=== PATIENT | female | born 2000 | race Caucasian/White ===

== ENCOUNTER 2018-05-14 12:21 | Inpatient (IN) | payer OTHER ==
[2018-05-14] MEDS ORDERED: ACETAMINOPHEN TAB 500 MG TAB PO STA (12:36)
[2018-05-14] MEDS ORDERED: SODIUM CHLORIDE 0.9% 2,000 ML IV STA (12:36)
[2018-05-14] MEDS ORDERED: ONDANSETRON 4 MG/2 ML VIAL IVP STA (12:36)
--- NOTE | 2018-05-14 12:40 | ED ---
General Adult HPI - General Chief complaint: Nausea/Vomiting/Diarrhea Stated complaint: Vomiting Time Seen by Provider: 05/14/18 12:30 Source: patient, RN notes reviewed, old records reviewed Mode of arrival: ambulatory Limitations: no limitations - History of Present Illness Initial comments: 17-year-old female presenting with 1 day history of nausea vomiting. Patient's states she's had 2 episodes of vomiting each hour for the past 17 hours. Denies diarrhea. She is uncertain of her last bowel movement was. She does report increased urinary frequency and has history of previous UTI and pyelonephritis. She does report some sick contacts with vomiting. She reports 4 days of vaginal discharge, no concern for STDs. Last menstrual period was 5 days ago. - Related Data Home Medications Medication Instructions Recorded Confirmed No Known Home Medications 05/14/18 05/14/18 Allergies Allergy/AdvReac Type Severity Reaction Status Date / Time escitalopram [From Lexapro] Allergy Unknown Verified 05/14/18 12:52 depression meds Allergy Unknown Uncoded 05/14/18 12:48 Review of Systems ROS Statement: Those systems with pertinent positive or pertinent negative responses have been documented in the HPI. ROS Other: All systems not noted in ROS Statement are negative. Past Medical History Additional Past Medical History / Comment(s): Frequent UTI History of Any Multi-Drug Resistant Organisms: None Reported Past Surgical History: No Surgical Hx Reported Past Psychological History: Anxiety, Bipolar, Depression Smoking Status: Former smoker Past Alcohol Use History: None Reported Past Drug Use History: None Reported General Exam Limitations: no limitations General appearance: alert, in no apparent distress Head exam: Present: atraumatic, normocephalic Eye exam: Present: normal appearance, PERRL ENT exam: Present: mucous membranes dry Neck exam: Present: normal inspection. Absent: tenderness, meningismus Respiratory exam: Present: normal lung sounds bilaterally. Absent: respiratory distress, wheezes Cardiovascular Exam: Present: normal rhythm, tachycardia GI/Abdominal exam: Present: soft, tenderness (Generalized tenderness to palpation, worse suprapubic). Absent: distended Extremities exam: Present: normal inspection, normal capillary refill. Absent: pedal edema Neurological exam: Present: alert, oriented X3 Psychiatric exam: Present: normal affect, normal mood Skin exam: Present: warm, dry, intact. Absent: cyanosis, diaphoretic Course Vital Signs 05/14/18 05/14/1805/14/19 12:22 13:04 14:30 Temperature 98.8 F Pulse Rate 149 H 114 H 98 Respiratory 17 18 18 Rate Blood Pressure 118/76 114/78 95/55 O2 Sat by Pulse 97 99 97 Oximetry 05/14/18 05/14/18 15:34 16:24 Temperature Pulse Rate 99 102 H Respiratory 18 18 Rate Blood Pressure 101/51 111/62 O2 Sat by Pulse 96 99 Oximetry Procedures - Sepsis Sepsis Focused Exam #1 Sepsis Focused Exam Date: 05/14/18 Sepsis Focused Exam Time: 16:38 Sepsis Focused Exam Complete: Yes Vital Signs & RN Notes Reviewed: Yes Peripheral Pulses: Normal: Radial (R), Radial (L) Skin Color: Normal for Patient Respiratory Exam: normal lung sounds Cardiovascular Exam: regular rate, normal rhythm Medical Decision Making - Medical Decision Making 17-year-old female presenting with nausea vomiting, no abdominal pain. Patient is toxic appearing on initial evaluation, tachycardic. Patient has elevated white blood cell count, stable hemoglobin, lactic is significantly elevated at 5.1. Urinalysis shows 12 white cells, 14 squamous cells, not consistent with ongoing UTI. Ultrasound is obtained, negative for tubo-ovarian abscess, no acute findings. CT obtained to rule out acute intra-abdominal pathology including appendicitis, this is negative. Pelvic exam reveals copious cervical discharge which is foul-smelling. Cultures obtained. Patient started on antibiotics covering pelvic inflammatory disease. Case discussed with [employer]ER on- call Dr. Bellamy, will admit patient for IV antibiotics. Diagnosis: Pelvic inflammatory disease, sepsis - Lab Data Result diagrams: 05/14/18 12:55 05/14/18 12:55 Lab Results 05/14/18 05/14/18 05/14/18 Range/Units 12:55 12:55 12:55 WBC 12.8 H (4.0-11.0) k/uL RBC 5.21 (3.80-5.40) m/uL Hgb 15.3 (11.4-16.0) gm/dL Hct 45.9 (34.0-46.0) % MCV 88.1 (80.0-100.0) fL MCH 29.4 (25.0-35.0) pg MCHC 33.4 (31.0-37.0) g/dL RDW 12.7 (11.5-15.5) % Plt Count 192 (150-450) k/uL Neutrophils % 90 % Lymphocytes % 4 % Monocytes % 5 % Eosinophils % 0 % Basophils % 0 % Neutrophils # 11.5 H (1.3-7.7) k/uL Lymphocytes # 0.5 L (1.0-4.8) k/uL Monocytes # 0.7 (0-1.0) k/uL Eosinophils # 0.0 (0-0.7) k/uL Basophils # 0.0 (0-0.2) k/uL Sodium 139 (137-145) mmol/L Potassium 4.5 (3.5-5.1) mmol/L Chloride 100 (98-107) mmol/L Carbon Dioxide 22 (22-30) mmol/L Anion Gap 17 mmol/L BUN 27 H (7-17) mg/dL Creatinine 0.88 (0.52-1.04) mg/dL Est GFR (CKD-EPI)AfAm >90 (>60 ml/min/1.73 sqM) Est GFR (CKD-EPI)NonAf >90 (>60 ml/min/1.73 sqM) Glucose 132 H (74-99) mg/dL Plasma Lactic Acid Ke 5.1 H* (0.7-2.0) mmol/L Calcium 10.2 (8.4-10.2) mg/dL Total Bilirubin 1.2 (0.2-1.3) mg/dL AST 25 (14-36) U/L ALT 27 (9-52) U/L Alkaline Phosphatase 64 (38-126) U/L Total Protein 8.2 (6.3-8.2) g/dL Albumin 4.9 (3.5-5.0) g/dL Lipase 25 (23-300) U/L Urine Color Urine Appearance (Clear) Urine pH (5.0-8.0) Ur Specific [place] (1.001-1.035) Urine Protein (Negative) Urine Glucose (UA) (Negative) Urine Ketones (Negative) Urine Blood (Negative) Urine Nitrite (Negative) Urine Bilirubin (Negative) Urine Urobilinogen (<2.0) mg/dL Ur Leukocyte Esterase (Negative) Urine RBC (0-5) /hpf Urine WBC (0-5) /hpf Ur Squamous Epith Cells (0-4) /hpf Urine Mucus (None) /hpf Urine HCG, Qual (Not Detectd) 05/14/18 05/14/18 Range/Units 12:55 12:55 WBC (4.0-11.0) k/uL RBC (3.80-5.40) m/uL Hgb (11.4-16.0) gm/dL Hct (34.0-46.0) % MCV (80.0-100.0) fL MCH (25.0-35.0) pg MCHC (31.0-37.0) g/dL RDW (11.5-15.5) % Plt Count (150-450) k/uL Neutrophils % % Lymphocytes % % Monocytes % % Eosinophils % % Basophils % % Neutrophils # (1.3-7.7) k/uL Lymphocytes # (1.0-4.8) k/uL Monocytes # (0-1.0) k/uL Eosinophils # (0-0.7) k/uL Basophils # (0-0.2) k/uL Sodium (137-145) mmol/L Potassium (3.5-5.1) mmol/L Chloride (98-107) mmol/L Carbon Dioxide (22-30) mmol/L Anion Gap mmol/L BUN (7-17) mg/dL Creatinine (0.52-1.04) mg/dL Est GFR (CKD-EPI)AfAm (>60 ml/min/1.73 sqM) Est GFR (CKD-EPI)NonAf (>60 ml/min/1.73 sqM) Glucose (74-99) mg/dL Plasma Lactic Acid Ke (0.7-2.0) mmol/L Calcium (8.4-10.2) mg/dL Total Bilirubin (0.2-1.3) mg/dL AST (14-36) U/L ALT (9-52) U/L Alkaline Phosphatase (38-126) U/L Total Protein (6.3-8.2) g/dL Albumin (3.5-5.0) g/dL Lipase (23-300) U/L Urine Color Yellow Urine Appearance Cloudy H (Clear) Urine pH 5.5 (5.0-8.0) Ur Specific [place] 1.035 (1.001-1.035) Urine Protein 1+ H (Negative) Urine Glucose (UA) Negative (Negative) Urine Ketones Trace H (Negative) Urine Blood Small H (Negative) Urine Nitrite Negative (Negative) Urine Bilirubin Negative (Negative) Urine Urobilinogen <2.0 (<2.0) mg/dL Ur Leukocyte Esterase Trace H (Negative) Urine RBC 6 H (0-5) /hpf Urine WBC 12 H (0-5) /hpf Ur Squamous Epith Cells 45 H (0-4) /hpf Urine Mucus Many H (None) /hpf Urine HCG, Qual Not Detected (Not Detectd) Disposition Clinical Impression: Pelvic inflammatory disease, Sepsis Disposition: ADMITTED IP TO THIS HOSP Condition: Stable Is patient prescribed a controlled substance at d/c from ED?: No Referrals: None,Stated [Primary Care Provider] - 1-2 days Decision to Admit Reason: Admit from EC Decision Date: 05/14/18 Decision Time: 16:39
[2018-05-14 13:31] LABS: Basophils % (A) 0 %; Eosinophils % (A) 0 %; HCT 45.9 % (34.0-46.0); HGB 15.3 gm/dL (11.4-16.0); Lymphocytes # (A) 0.5 k/uL (1.0-4.8); Lymphocytes % (A) 4 %; MCH 29.4 pg (25.0-35.0); MCHC 33.4 g/dL (31.0-37.0); MCV 88.1 fL (80.0-100.0); Mean Platelet Volume 9.8; Monocytes # (A) 0.7 k/uL (0-1.0); Monocytes % (A) 5 %; Neutrophils # (A) 11.5 k/uL (1.3-7.7); Neutrophils % (A) 90 %; Platelet Count 192 k/uL (150-450); RBC 5.21 m/uL (3.80-5.40); RDW 12.7 % (11.5-15.5); WBC 12.8 k/uL (4.0-11.0)
[2018-05-14 13:40] LABS: ALT 27 U/L (9-52); AST 25 U/L (14-36); Albumin 4.9 g/dL (3.5-5.0); Alkaline Phosphatase 64 U/L (38-126); Anion Gap 17 mmol/L; Blood Urea Nitrogen 27 mg/dL (7-17); Calcium 10.2 mg/dL (8.4-10.2); Carbon Dioxide 22 mmol/L (22-30); Chloride 100 mmol/L (98-107); Glucose 132 mg/dL (74-99); Lipase 25 U/L (23-300); Potassium 4.5 mmol/L (3.5-5.1); Sodium 139 mmol/L (137-145); Total Bilirubin 1.2 mg/dL (0.2-1.3); Total Protein 8.2 g/dL (6.3-8.2)
[2018-05-14 13:43] LABS: Appearance,Urine Cloudy (Clear); Bilirubin,Urine Negative (Negative); Blood,Urine Small (Negative); Color,Urine Yellow; Glucose,Urine (UA) Negative (Negative); Ketones,Urine Trace (Negative); Leukocyte Esterase,Urine Trace (Negative); Mucus,Urine Many /hpf; Nitrite,Urine Negative (Negative); PH, Urine 5.5 (5.0-8.0); Protein,Urine 1+ (Negative); RBC,Urine 6 /hpf (0-5); Specific Gravity,Urine 1.035 (1.001-1.035); Squamous Epithelial Cell,Urine 45 /hpf (0-4); Urobilinogen,Urine <2.0 mg/dL (<2.0); WBC,Urine 12 /hpf (0-5)
[2018-05-14] MEDS ORDERED: SODIUM CHLORIDE 0.9% 1,000 ML IV ONE (13:57)
[2018-05-14] MEDS ORDERED: metroNIDAZOLE-NS PMX 500 MG in SALINE 1 100ML.BAG IVPB STA (13:57)
[2018-05-14] MEDS ORDERED: KETOROLAC 30 MG/ML 1 ML VIAL IVP STA (13:58)
--- NOTE | 2018-05-14 15:39 | US ---
EXAMINATION TYPE: US transvaginal DATE OF EXAM: 05/14/2018 COMPARISON: NONE CLINICAL HISTORY: pain. Abdomen pain and N/V x 1 day, irregular cycles, patient has IUD TECHNIQUE: Transvaginal ER exam. Date of LMP: Last cycle ended 5 days ago EXAM MEASUREMENTS: Uterus: 6.6 x 2.6 x 4.7 cm Endometrial Stripe: 0.4 cm Right Ovary: 2.0 x 1.8 x 1.5 cm Left Ovary: 2.3 x 1.7 x 1.8 cm 1. Uterus: anteverted 2. Endometrium: IUD appears in place 3. Right Ovary: wnl 4. Left Ovary: 1.6 x 1.0 x 1.5cm septated cyst Spectral, color and waveform doppler imaging shows arterial flow within bilateral ovaries, unable t o obtain venous flow within bilateral ovaries. Color flow noted to both ovaries. 5. Bilateral Adnexa: wnl 6. Posterior cul-de-sac: wnl IMPRESSION: Intrauterine contraceptive device. Septated cystic focus associated with the left ovary.
--- NOTE | 2018-05-14 16:00 | CT ---
EXAMINATION TYPE: CT abdomen pelvis w con DATE OF EXAM: 05/14/2018 COMPARISON: None INDICATION: ABDOMINAL PAIN AND VOMITING DLP: 511.9 mGycm, Automated exposure control for dose reduction was used. CONTRAST: 100 mL of Isovue 300. Study performed without Oral Contrast TECHNIQUE: Axial images were obtained from above the diaphragm to the pubic rami in the axial plane a t 5 mm thick sections. Reconstructed images are reviewed on the computer in the coronal plane. FINDINGS: Limited CT sections are obtained the lung bases. The lung bases are clear. CT ABDOMEN: Liver: Normal Spleen: Normal Pancreas: Normal Adrenal glands: The adrenal glands are normal. Gallbladder: Normal Kidneys: No masses are evident. No hydronephrosis is present. No cysts are present. Delayed images were obtained through the kidneys, which remain unremarkable. Aorta: Normal Inferior vena cava: Normal. CT PELVIS: Loops of bowel within the abdomen and pelvis are normal. Studies without oral contrast limiting b owel evaluation. Appendix: Not identified. No suspicious tubular structures or inflammatory changes are evident. Urinary bladder: Normal. Genitourinary structures: Uterus contains an IUD. Adnexal regions are unremarkable. Osseous structures: No suspicious lytic or sclerotic lesions. IMPRESSIONS: 1. Normal CT abdomen and pelvis.
[2018-05-14] MEDS ORDERED: AZITHROMYCIN 500 MG TAB PO STA (16:24)
[2018-05-14] MEDS ORDERED: NALOXONE 0.4 MG/ML 1 ML VIAL IV PRN (16:31)
[2018-05-14] MEDS: SODIUM CHLORIDE 0.9% 1,000 ML IV SCH (17:19)
[2018-05-14 18:32] VITALS: BMI 22.8
--- NOTE | 2018-05-14 19:49 | P.HPOB ---
History of Present Illness H&P Date: 05/14/18 Chief Complaint: PID Patient is a 17-year-old female who over the last 24 hours has had multiple episodes of nausea and vomiting. She was seen in the emergency room for acute nausea and vomiting and pelvic/abdominal pain. Abdomen soft with minimal tenderness there is no rebound or rigidity. Pelvic exam was done by myself as we are trying to see if we could remove her IUD due to potential worsening of infection if she has PID. Cultures are pending. On exam cervix is nulliparous and small was no significant cervical motion tenderness on exam and she tolerated trying to explore the cervical canal for the IUD strings very well. I was unable to identify the strings with a long Mishel and therefore IUD could not be removed. It may unfortunately. She needs to have it done under anesthesia or we could certainly try in the office at a later date. She reports that the IUD is passed its point of removal and was posterior removed couple of months ago in [place] but they were unable to find the strings and did not even attempt to remove it. Ultrasound shows IUD in correct position. She had it inserted actively 3 years ago and it is a ashleigh IUD. At this time other than IV antibiotics and antiemetics/analgesics there is limited else to do. Cultures are all pending. Trichomonas culture was negative. At this time I'm not Certain That She Has PID but Cultures Will Verify If There Is an Infectious Source. Vital signs are stable and afebrile. Heart regular, lungs clear, extremities without pain. Past medical history none Past surgical history none ALLERGIES none social history is significant for marijuana use and remote history of tobacco use family history is noncontributory Assessment PID Plan IV antibiotics for minimum of [address] Newby in the a.m. as she may have to have this removed under anesthesia but at this time I don't believe that there is an emergency in doing so. Past Medical History Additional Past Medical History / Comment(s): Frequent UTI History of Any Multi-Drug Resistant Organisms: None Reported Past Surgical History: No Surgical Hx Reported Past Anesthesia/Blood Transfusion Reactions: No Reported Reaction Past Psychological History: Anxiety, Bipolar, Depression Smoking Status: Former smoker Past Alcohol Use History: None Reported Past Drug Use History: Marijuana - Past Family History Father History Unknown: Yes Family Medical History: No Reported History Medications and Allergies Home Medications Medication Instructions Recorded Confirmed Type No Known Home Medications 05/14/18 05/14/18 History Allergies Allergy/AdvReac Type Severity Reaction Status Date / Time escitalopram [From Lexapro] Allergy Unknown Verified 05/14/18 18:33 depression meds Allergy Unknown Uncoded 05/14/18 18:33 Exam Osteopathic Statement: *. No significant issues noted on an osteopathic structural exam other than those noted in the History and Physical/Consult. Vital Signs Temp Pulse Pulse Resp BP BP Pulse Ox 05/14/18 18:19 98.6 F 96 16 106/59 99 05/14/18 17:20 97.8 F 91 18 106/88 100 05/14/18 16:24 102 H 18 111/62 99 05/14/18 15:34 99 18 101/51 96 05/14/18 14:30 98 18 95/55 97 05/14/18 13:04 114 H 18 114/78 99 05/14/18 12:22 98.8 F 149 H 17 118/76 97 Intake and Output 05/14/18 05/14/18 05/14/18 06:59 14:59 22:59 Other: Weight 54.431 kg Results Result Diagrams: 05/14/18 12:55 05/14/18 12:55 Abnormal Lab Results - Last 24 Hours (Table) 05/14/18 05/14/18 05/14/18 Range/Units 12:55 12:55 12:55 WBC 12.8 H (4.0-11.0) k/uL Neutrophils # 11.5 H (1.3-7.7) k/uL Lymphocytes # 0.5 L (1.0-4.8) k/uL BUN 27 H (7-17) mg/dL Glucose 132 H (74-99) mg/dL Plasma Lactic Acid Ke 5.1 H* (0.7-2.0) mmol/L Urine Appearance (Clear) Urine Protein (Negative) Urine Ketones (Negative) Urine Blood (Negative) Ur Leukocyte Esterase (Negative) Urine RBC (0-5) /hpf Urine WBC (0-5) /hpf Ur Squamous Epith Cells (0-4) /hpf Urine Mucus (None) /hpf 05/14/18 Range/Units 12:55 WBC (4.0-11.0) k/uL Neutrophils # (1.3-7.7) k/uL Lymphocytes # (1.0-4.8) k/uL BUN (7-17) mg/dL Glucose (74-99) mg/dL Plasma Lactic Acid Ke (0.7-2.0) mmol/L Urine Appearance Cloudy H (Clear) Urine Protein 1+ H (Negative) Urine Ketones Trace H (Negative) Urine Blood Small H (Negative) Ur Leukocyte Esterase Trace H (Negative) Urine RBC 6 H (0-5) /hpf Urine WBC 12 H (0-5) /hpf Ur Squamous Epith Cells 45 H (0-4) /hpf Urine Mucus Many H (None) /hpf
[2018-05-14] MEDS: DOXYCYCLINE 100 MG in SODIUM CHLORIDE 0.9% 100 ML IVPB SCH (20:23)
[2018-05-14] MEDS: ONDANSETRON 4 MG/2 ML VIAL IVP PRN (20:23)
[2018-05-14] MEDS: ACETAMINOPHEN TAB 325 MG TAB PO PRN (20:30)
[2018-05-14] MEDS: metroNIDAZOLE-NS PMX 500 MG in SALINE 1 100ML.BAG IVPB SCH (23:13)
[2018-05-15] MEDS: SODIUM CHLORIDE 0.9% 1,000 ML IV SCH ×2 (06:03→17:48)
[2018-05-15] MEDS: ONDANSETRON 4 MG/2 ML VIAL IVP PRN (06:08)
--- NOTE | 2018-05-15 08:13 | P.PN ---
Progress Note - Text Progress Note Date: 05/15/18 Overall patient is doing well. She is ambulating and voiding. She is tolerating a liquid diet but still struggles with a solid diet. There is some question as to whether not she truly has PID, will await final cultures to verify. Continue IV antibiotics until such time or switch to oral antibiotics when ready for discharge. We'll discuss with Dr. Vance this morning. Vital signs are stable and she is afebrile. CBC is pending for this morning. Is also noted from last night exam that she had scant milky discharge there was no posterior is no cervical drainage and no cervical motion tenderness. Her abdomen is otherwise also soft there is minimal tenderness to palpation. Nausea has essentially resolved at this time however. Assessment PID versus gastroenteritis Plan continue IV antibiotics for now and then switch to oral antibiotics at discharge if cultures are positive for pending. She'll follow up with me in the next 1-2 weeks for reevaluation and to see if we need to do something different to try and remove her IUD.
[2018-05-15] MEDS: metroNIDAZOLE-NS PMX 500 MG in SALINE 1 100ML.BAG IVPB SCH ×2 (08:23→15:58)
[2018-05-15] MEDS: DOXYCYCLINE 100 MG in SODIUM CHLORIDE 0.9% 100 ML IVPB SCH ×2 (09:36→22:13)
[2018-05-15 09:57] LABS: Basophils % (A) 0 %; Eosinophils # (A) 0.1 k/uL (0-0.7); Eosinophils % (A) 2 %; HCT 32.7 % (34.0-46.0); Lymphocytes % (A) 19 %; MCH 29.4 pg (25.0-35.0); MCHC 32.7 g/dL (31.0-37.0); MCV 89.9 fL (80.0-100.0); Mean Platelet Volume 9.6; Monocytes # (A) 0.5 k/uL (0-1.0); Monocytes % (A) 8 %; Neutrophils # (A) 3.6 k/uL (1.3-7.7); Neutrophils % (A) 67 %; Platelet Count 106 k/uL (150-450); RBC 3.64 m/uL (3.80-5.40); RDW 12.9 % (11.5-15.5); WBC 5.4 k/uL (4.0-11.0)
[2018-05-15 10:05] LABS: HGB 10.7 gm/dL (11.4-16.0)
[2018-05-15] MEDS: ACETAMINOPHEN TAB 325 MG TAB PO PRN ×2 (11:42→17:55)
[2018-05-15 12:25] LABS: C. trachomatis,PCR Negative (Neg,Equiv); Chlamydia trachomatis Source Vagina
[2018-05-15 12:26] LABS: N. gonorrhoeae,PCR Negative (Neg,Equiv); Neisseria Source Vagina
[2018-05-16] MEDS: metroNIDAZOLE-NS PMX 500 MG in SALINE 1 100ML.BAG IVPB SCH ×2 (01:30→08:07)
[2018-05-16] MEDS: ONDANSETRON 4 MG/2 ML VIAL IVP PRN (02:11)
--- NOTE | 2018-05-16 07:01 | P.PN ---
Progress Note - Text Progress Note Date: 05/16/18 Hospital day #2. This patient is resting without complaints. Vital signs are stable and she is afebrile. Patient is tolerating regular diet. Examination of her abdomen shows be soft nontender without rebound or guarding. Patient's received 24 hours plus of IV antibiotics. In discussion with the patient, I agree with Dr. Bellamy that this appears to be more gastrointestinal in etiology rather than PID however certainly giving her 24-hour course of IV antibiotics is reasonable. At this point she is no evidence of fever or elevated white count and therefore is felt to be stable for discharge home on oral antibiotics. Discharge home this morning and follow Dr. Bellamy in approximately 1 week. I'm going to discharge her on oral doxycycline but hold off on Flagyl due to the previous nausea and vomiting.
--- NOTE | 2018-05-16 07:04 | P.DS ---
Providers Date of admission: 05/14/18 16:33 Expected date of discharge: 05/16/18 Attending physician: Dontrell Bellamy Primary care physician: Stated None Hospital Course: Please see dictated H&P per Dr. Bellamy on this patient's admission. Brief summary this is a 17-year-old female who is admitted with 24 hours of profuse nausea and vomiting. Evaluation the emergency department was concerning for PID because they felt she had some cervical motion tenderness and the retained IUD. Dr. Bellamy did attempt to remove this however this was unsuccessful. His feeling was that this was not PID but rather gastroenteritis or some type of transient gastrointestinal infection. Patient however was given 24 hours of IV antibiotics is feeling much better. Patient is tolerating regular diet and afebrile. White blood cell count was normal. Patient's felt be stable to go home on the 7 day course of doxycycline I am going to hold off however on Flagyl. Patient will follow with Dr. Bellamy in 7 days for reevaluation and they'll discuss IUD removal at that time. Patient Condition at Discharge: Good Plan - Discharge Summary Discharge Rx Participant: Yes New Discharge Prescriptions: New Doxycycline Hyclate 100 mg PO Q12H #14 tab Discharge Medication List Doxycycline Hyclate 100 mg PO Q12H #14 tab 05/16/18 [Rx] Follow up Appointment(s)/Referral(s): Dontrell Bellamy DO [Doctor of Osteopathic Medicine] - 1 Week None,Stated [Primary Care Provider] - 1-2 days Patient Instructions/Handouts: Gastroenteritis (DC), Pelvic Inflammatory Disease (DC) Activity/Diet/Wound Care/Special Instructions: Return with any high temperatures, severe pain or resumption of symptoms. Discharge Disposition: HOME SELF-CARE
[2018-05-16 09:49] VITALS: BP 104/55; PULSE 77; RESP 16; TEMP 98
== END 2018-05-16 10:03 | disposition home or self-care (01) | DRG 392 ==
LOC: EC 12:21 → 6PED 16:33
PROVIDERS: ADMIT Obstetrics & Gynecology; ATTEND Obstetrics & Gynecology
DX: A09 Infectious gastroenteritis and colitis, unspecified (principal); Z87.440 Personal history of urinary (tract) infections; Z87.891 Personal history of nicotine dependence
CPT/HCPCS: 36415; 74177; 76830; 80053; 81001; 81025; 83605; 83690; 85025; 87070; 87086; 87205; 87491; 87591; 87808; 93976; 96361; 96365; 96367; 96375; 99285

== ENCOUNTER 2018-08-21 08:38 | Day surgery (SDC) | payer OTHER ==
[2018-08-19 09:46] VITALS: BMI 19.8
--- NOTE | 2018-08-20 16:22 | P.HPOB ---
History of Present Illness H&P Date: 08/20/18 Chief Complaint: Retained IUD Patient has a IUD that I attempted multiple times to remove and was unable to while she was awake. She had significant pain and discomfort and we're therefore moving forward with an exam under anesthesia with removal of same and possible hysteroscopy. Risks/benefits/alternatives reviewed with the patient in detail all questions were answered for her prior to proceeding to the operative room. Past Medical History Past Medical History: No Reported History Additional Past Medical History / Comment(s): Frequent UTI. IUD, HAD PELVIC INFECTION 04/2018. History of Any Multi-Drug Resistant Organisms: None Reported Past Surgical History: No Surgical Hx Reported Additional Past Surgical History / Comment(s): WISDOM TEETH Past Anesthesia/Blood Transfusion Reactions: No Reported Reaction, Motion Sickness Smoking Status: Former smoker - Past Family History Father History Unknown: Yes Family Medical History: No Reported History Mother Family Medical History: No Reported History Medications and Allergies Home Medications Medication Instructions Recorded Confirmed Type No Known Home Medications 06/19/18 08/19/18 History Allergies Allergy/AdvReac Type Severity Reaction Status Date / Time escitalopram [From Lexapro] Allergy Nausea, Verified 08/19/18 09:41 LETHARGIC Exam Osteopathic Statement: *. No significant issues noted on an osteopathic structural exam other than those noted in the History and Physical/Consult. - OBG Physical Exam Breast: both: normal (no masses) Abdomen: bowel sounds normal, no diffuse tenderness, no bruit present, no guarding noted, no hepatomegaly, no splenomegaly, no mass Vulva: both: normal Vagina: normal moisture, no discharge Cervix: no lesion, no discharge Uterus: normal size, normal contour Adnexa: both: normal Anus/Rectum: normal perianal skin, no rectal mass, no hemorrhoids, heme negative
[~2018-08-21 08:38] MED LIST: DEXAMETHASONE SOD PHOSPHATE 10 MG/ML 1 ML VIAL IV ONE; HYDROmorphone 0.5 MG/0.5 ML SYRINGE IVP PRN; LACTATED RINGERS 1,000 ML IV SCH; LIDOCAINE 1% 20 ML VIAL (10MG/ML) FOR IV START INTRADERMA PRN; MIDAZOLAM (PF) 2 MG/2 ML VIAL IV PRN; ONDANSETRON 4 MG/2 ML VIAL IVP ONE; Pre Op ABX Message 1 EACH MISC MISCELLANE ONE; SCOPOLAMINE 1.5MG/72HR PATCH TRANSDERM ONE
[2018-08-21 09:15] LABS: Glucose,Whole Blood 90 mg/dL (75-99)
[2018-08-21 09:23] VITALS: RESP 16
[2018-08-21] MEDS ORDERED: PROPOFOL 10 MG/ML 20 ML VIAL IV ONE (10:24)
[2018-08-21] MEDS ORDERED: LIDOCAINE 1% INJ 10MG/ML (20 ML MDV) ONE (10:24)
[2018-08-21] MEDS ORDERED: fentaNYL (PF) 50 MCG/ML 2 ML AMP ONE (10:24)
--- NOTE | 2018-08-21 10:50 | P.OP ---
Date of Procedure: 08/21/18 Preoperative Diagnosis: Retained IUD: Mild cervical stenosis Postoperative Diagnosis: Same Procedure(s) Performed: Dilation and removal of IUD Anesthesia: GEORGE Surgeon: Dontrell Bellamy Estimated Blood Loss (ml): 0 Pathology: none sent Condition: stable Disposition: same day Operative Findings: Mild cervical stenosis Description of Procedure: Patient states the operating suite where general anesthetic was found be adequate. She was prepped and draped in normal sterile fashion and placed in dorsal lithotomy position. Initially a weighted speculum was inserted into the vagina and the anterior lip of the cervix was identified and grasped with an Allis clamp. Cervix was then dilated and then using a polyp forcep was able to grasp the IUD and removed without difficulty. All instruments were then removed. Sponge, lap, needle counts were all correct 2. Patient was then taken to the recovery room in stable and satisfactory condition. Plan - Discharge Summary Discharge Rx Participant: Yes New Discharge Prescriptions: No Action No Known Home Medications Discharge Medication List No Known Home Medications 06/19/18 [History]
[2018-08-21 10:58] VITALS: TEMP 97.5
[2018-08-21] MEDS ORDERED: ONDANSETRON 4 MG/2 ML VIAL IVP ONE (11:31)
[2018-08-21] MEDS ORDERED: KETOROLAC 30 MG/ML 1 ML VIAL IVP ONE (11:40)
[2018-08-21 12:26] VITALS: BP 125/78; PULSE 88
== END 2018-08-21 12:43 | disposition home or self-care (01) ==
LOC: OR 08:38
PROVIDERS: ATTEND Obstetrics & Gynecology
DX: Z30.432 Encounter for removal of intrauterine contraceptive device (principal); N88.2 Stricture and stenosis of cervix uteri; Z87.440 Personal history of urinary (tract) infections; Z87.891 Personal history of nicotine dependence; Z88.8 Allergy status to other drugs, medicaments and biological substances
CPT/HCPCS: 81025; 58301; J2405; J2001; J3010; J1885; J2704